=== PATIENT | male | born 1990 | race Caucasian/White ===

== ENCOUNTER 2022-02-11 00:20 | Emergency (ER) | payer SELFPAY ==
[~2022-02-11] VITALS: Ht 172.7 cm; Wt 68.0 kg
[2022-02-11 00:30] VITALS: BP 134/84
--- NOTE | 2022-02-11 00:30 | NUR ---
BIBS FOR EVALUATION OF R THUMB DOG BITE. SEEN IN ANOTHER ER AND REC'D TDAP ALREADY. A/OX4. TOLERATING R/A WELL WITH NO SOB OR RESP DISTRESS. SAFETY MEASURES IN PLACE.
[2022-02-11] MEDS ORDERED: KETOROLAC TROMETHAMINE INJ 30 MG/ML VIAL ONE (00:38)
[2022-02-11] MEDS ORDERED: KETOROLAC TROMETHAMINE INJ 30 MG/ML VIAL IM ONE (01:00)
--- NOTE | 2022-02-11 01:53 | NUR ---
Dr. Law EDWARDS at bed side for [facility]
[2022-02-11] MEDS ORDERED: AMOX-430 PO (02:15)
== END 2022-02-11 03:42 | disposition home or self-care (01) ==
LOC: ER 00:56
DX: S61.031A Puncture wound without foreign body of right thumb without damage to nail, initial encounter (principal); F17.200 Nicotine dependence, unspecified, uncomplicated; W54.0XXA Bitten by dog, initial encounter; Y93.89 Activity, other specified; Y92.89 Other specified places as the place of occurrence of the external cause; Y99.8 Other external cause status
CPT/HCPCS: 99283; 29125; 73130; 96372; J1885